=== PATIENT | female | born 1980 | race Caucasian/White ===

== ENCOUNTER 2018-01-15 13:46 | Emergency (ER) | payer OTHER ==
[2018-01-15 14:17] VITALS: BP 127/65
--- NOTE | 2018-01-15 14:47 | UC ---
Throat Pain/Nasal Guillermo HPI - HPI Summary HPI Summary: Pt c/o sudden onset of mouth, tongue and throat pain with sores on tongue, inner cheeks, and throat. Pt has prior hx of coxsackie - History of Current Complaint Chief Complaint: UCGeneralIllness Stated Complaint: SORE THROAT Time Seen by Provider: 01/15/18 14:36 Hx Obtained From: Patient Hx Last Menstrual Period: 12/30/17 ?: No Onset/Duration: Sudden Onset, Lasting Days, Still Present Severity: Moderate Pain Intensity: 8 - Epiglottits Risk Factors Epiglottis Risk Factors: Sudden Onset - Allergies/Home Medications Allergies/Adverse Reactions: Allergies Allergy/AdvReac Type Severity Reaction Status Date / Time No Known Allergies Allergy Verified 01/15/18 14:14 Home Medications: Home Medications Naproxen Sodium [Aleve] 220 mg PO Q6H PRN 01/15/18 [History Confirmed 01/15/18] PMH/Surg Hx/FS Hx/Imm Hx Previously Healthy: Yes - Surgical History Surgical History: Yes Surgery Procedure, Year, and Place: carpal tunnel. x2 - Family History Known Family History: Positive: Cardiac Disease - Social History Occupation: Employed Full-time Lives: With Family Alcohol Use: None Alcohol Amount: sober for 3 years Substance Use Type: None Smoking Status (MU): Never Smoked Tobacco Have You Smoked in the Last Year: No Review of Systems All Other Systems Reviewed And Are Negative: Yes Constitutional: Positive: Fatigue Skin: Positive: Negative Eyes: Positive: Negative ENT: Positive: Sore Throat, Other - mouth pain, mouth sores Respiratory: Positive: Negative Cardiovascular: Positive: Negative Gastrointestinal: Positive: Negative Genitourinary: Positive: Negative Motor: Positive: Negative Neurovascular: Positive: Negative Musculoskeletal: Positive: Negative Neurological: Positive: Negative Psychological: Positive: Negative Is Patient Immunocompromised?: No Physical Exam Triage Information Reviewed: Yes Appearance: Pain Distress Vital Signs: Initial Vital Signs Temp 98.2 F 01/15/18 14:13 Pulse 64 01/15/18 14:13 Resp 15 01/15/18 14:13 BP 127/65 01/15/18 14:13 Pulse Ox 98 01/15/18 14:13 Vital Signs Reviewed: Yes Eye Exam: Normal ENT Exam: Other - scattered aphthous in mouth aon on tongue Dental Exam: Normal Neck exam: Normal Respiratory Exam: Normal Respiratory: Positive: No respiratory distress Musculoskeletal Exam: Normal Neurological Exam: Normal Psychological Exam: Normal Skin Exam: Normal Throat Pain/Nasal Course/Dx - Differential Dx/Diagnosis Differential Diagnosis/HQI/PQRI: Pharyngitis, URI Provider Diagnosis: Aphthous stomatitis, Acute viral syndrome Discharge - Sign-Out/Discharge Documenting (check all that apply): Patient Departure All imaging exams completed and their final reports reviewed: No Studies - Discharge Plan Condition: Stable Disposition: HOME Prescriptions: Lidocaine 2% VISCOUS* [Xylocaine 2% Viscous*] 15 ml SWISH SPIT Q4H PRN #1 btl PRN Reason: Pain predniSONE TAB* [Deltasone 20 MG TAB*] 20 mg PO DAILY #4 tab ValACYclovir (*) [Valtrex 1 GM(*)] 1 gm PO Q12H #14 tab Patient Education Materials: Canker Sores (ED) [facility]errals: [facility] [Outside] No Primary Care Phys,NOPCP [Primary Care Provider] - - Billing Disposition and Condition Condition: STABLE Disposition: Home
== END 2018-01-15 14:57 | disposition home or self-care (01) ==
LOC: UCCORT 13:46
DX: K12.1 Other forms of stomatitis (principal); B34.9 Viral infection, unspecified
CPT/HCPCS: 99212; G0463

== ENCOUNTER 2018-09-15 07:37 | Emergency (ER) | payer OTHER ==
[2018-09-15 07:48] VITALS: BP 132/92
[2018-09-15] MEDS ORDERED: Acetaminophen TAB* 325 MG PO ONE (08:08)
--- NOTE | 2018-09-15 10:27 | UC ---
General HPI - HPI Summary HPI Summary: YESTERDAY MORNING WAS MAKING THE BED WHEN SHE SUDDENLY DEVELOPED SHARP PAIN IN HER LEFT LOWER ANTERIOR RIB CAGE. PAIN IS WORSE WITH DEEP INSPIRATION AND ANY MOVEMENT AT ALL. TOOK SOME IBUPROFEN WITH ONLY SLIGHT RELIEF. SHE DENIES CHEST PAIN. NO NAUSEA. NO SWEATS. - History of Current Complaint Chief Complaint: UCChestPain Stated Complaint: PAIN UNDER RIB AREA Time Seen by Provider: 09/15/18 07:55 Hx Obtained From: Patient Hx Last Menstrual Period: 09/01/18 Onset/Duration: Sudden Onset, Lasting Days - 1 DAY, Still Present Timing: Constant Onset Severity: Moderate Current Severity: Moderate Pain Intensity: 1 Associated Signs & Symptoms: Negative: Abdominal Pain, Back Pain, Chest Pain, Diaphoresis, Headache, Nausea, Trauma - Allergy/Home Medications Allergies/Adverse Reactions: Allergies Allergy/AdvReac Type Severity Reaction Status Date / Time No Known Allergies Allergy Verified 09/15/18 07:48 Home Medications: Home Medications Ibuprofen 800 mg PO ONCE PRN 09/15/18 [History Confirmed 09/15/18] PMH/Surg Hx/FS Hx/Imm Hx Psychological History: Depression - Surgical History Surgical History: Yes Surgery Procedure, Year, and Place: carpal tunnel. x2. vericose vein surgery - Family History Known Family History: Positive: Cardiac Disease - Social History Alcohol Use: Occasionally Alcohol Amount: sober for 3 years Substance Use Type: None Smoking Status (MU): Never Smoked Tobacco Have You Smoked in the Last Year: No Review of Systems All Other Systems Reviewed And Are Negative: Yes Constitutional: Positive: Negative Skin: Positive: Negative Respiratory: Positive: Other - pleuritic pain Cardiovascular: Positive: Negative Gastrointestinal: Positive: Negative Musculoskeletal: Positive: Other: - left rib cage pain Physical Exam Triage Information Reviewed: Yes Appearance: Well-Nourished, Pain Distress - moderate Vital Signs: Initial Vital Signs Temp 99 F 09/15/18 07:44 Pulse 66 09/15/18 07:44 Resp 16 09/15/18 07:44 BP 132/92 09/15/18 07:44 Pulse Ox 98 09/15/18 07:44 Vital Signs Reviewed: Yes Eyes: Positive: Conjunctiva Clear ENT: Positive: Hearing grossly normal Neck: Positive: Supple Respiratory: Positive: No respiratory distress, No accessory muscle use Cardiovascular: Positive: Pulses Normal Abdomen Description: Positive: Nontender, Soft. Negative: CVA Tenderness (R), CVA Tenderness (L), Distended, Guarding Musculoskeletal: Positive: No Edema, ROM Limited @ - trunk, Other: - EXQUISITELY TTP LEFT ANTERIOR LOWER RIB CAGE Neurological: Positive: Alert, Muscle Tone Normal Psychological: Positive: Age Appropriate Behavior Skin: Negative: Rashes Diagnostics - Laboratory Lab Results: URINE DIP SP. GR. 1.010, TR BLOOD, TR LEUKS, 1+ BILI - Radiology LEFT RIB XRAYS Radiology Interpretation Completed By: Radiologist Summary of Radiographic Findings: No fracture of the left ribs is noted. No pneumothorax is noted. Course/Dx - Course Course Of Treatment: UNCLEAR ETIOLOGY OF PATIENT'S DISCOMFORT ALTHOUGH IT SEEMS TO BE STEMMING FROM HER LEFT ANTERIOR LOWER RIB CAGE. RIB SERIES UNREMARKABLE. URINE WITH TRACE BLOOD AND TRACE LEUKOCYTES. NO ACUTE INTERVENTION BASED ON THIS RESULT BUT SPECIMEN HAS BEEN SENT FOR CULTURE. SYMPTOMS WERE IMPROVED AFTER TYLENOL. WILL SEND HOME WITH CONSERVATIVE MANAGEMENT/CAREFUL OBSERVATION. PAIN MAY BE DUE TO INTERCOSTAL MUSCLE STRAIN. OTC MEDICATIONS NEEDED. SHE WILL GO TO THE ER WITHOUT FAIL IF HER SYMPTOMS WORSEN. - Diagnoses Provider Diagnosis: Intercostal muscle pain Discharge - Sign-Out/Discharge Documenting (check all that apply): Patient Departure All imaging exams completed and their final reports reviewed: Yes - Discharge Plan Condition: Stable Disposition: HOME Prescriptions: Cyclobenzaprine TAB* [Flexeril TAB*] 10 mg PO BID PRN #30 tab PRN Reason: Pain Patient Education Materials: Muscle Strain (ED) Referrals: [facility] [Outside] - If Needed Additional Instructions: UNCLEAR ETIOLOGY OF YOUR DISCOMFORT. SYMPTOMS MOST CONSISTENT WITH INTERCOSTAL MUSCLE STRAIN. YOUR LEFT RIB/CHEST X-RAYS WERE UNREMARKABLE. URINE HAD A TRACE AMOUNT OF BACTERIA AND BLOOD IN IT SO WE HAVE SENT IT FOR CULTURE TO ENSURE NO INFECTIOUS PROCESS. WE WILL CALL YOU IF ANY ABNORMAL RESULTS. TREATED CONSERVATIVELY WITH HEAT AND STRETCHING. WILL GIVE FLEXERIL FOR YOU TO USE NEEDED. CONTINUE OTC MEDICATIONS NEEDED FOR DISCOMFORT. GO TO THE ER WITHOUT FAIL IF YOU DEVELOP WORSENING PAIN, FEVER, SHORTNESS OF BREATH, NAUSEA OR ANY OTHER CONCERNING SYMPTOMS. IBUPROFEN MAX DOSE: 600MG (3 TABS) EVERY 6 HRS OR 800MG (4 TABS) EVERY 8 HRS OR NAPROXEN MAX DOSE: 440MG (2 TABS) EVERY 12 HRS TYLENOL MAX DOSE: 1000MG (2 EXTRA STRENGTH TABS) EVERY 8 HRS OR 650MG (2 REGULAR TABS) EVERY 6 HRS CALL THE NUMBER BELOW FOR ASSISTANCE IN ESTABLISHING WITH A PCP An additional resource available to assist in finding the appropriate physician for your health care needs is the [facility] ([facility]). You may contact them by calling [phone]. - Billing Disposition and Condition Condition: STABLE Disposition: Home
--- NOTE | 2018-09-16 15:09 | UC ---
- Progress Note Progress Note: notify pt prelim culture show UTI antibiotic ERxed Course/Dx - Diagnoses Provider Diagnoses: Intercostal muscle pain Discharge - Sign-Out/Discharge Documenting (check all that apply): Post-Discharge Follow Up All imaging exams completed and their final reports reviewed: Yes - Discharge Plan Condition: Stable Disposition: HOME Prescriptions: Cephalexin CAP* [Keflex CAP*] 500 mg PO BID #14 cap Cyclobenzaprine TAB* [Flexeril TAB*] 10 mg PO BID PRN #30 tab PRN Reason: Pain Patient Education Materials: Muscle Strain (ED) Referrals: [facility] [Outside] - If Needed Additional Instructions: UNCLEAR ETIOLOGY OF YOUR DISCOMFORT. SYMPTOMS MOST CONSISTENT WITH INTERCOSTAL MUSCLE STRAIN. YOUR LEFT RIB/CHEST X-RAYS WERE UNREMARKABLE. URINE HAD A TRACE AMOUNT OF BACTERIA AND BLOOD IN IT SO WE HAVE SENT IT FOR CULTURE TO ENSURE NO INFECTIOUS PROCESS. WE WILL CALL YOU IF ANY ABNORMAL RESULTS. TREATED CONSERVATIVELY WITH HEAT AND STRETCHING. WILL GIVE FLEXERIL FOR YOU TO USE NEEDED. CONTINUE OTC MEDICATIONS NEEDED FOR DISCOMFORT. GO TO THE ER WITHOUT FAIL IF YOU DEVELOP WORSENING PAIN, FEVER, SHORTNESS OF BREATH, NAUSEA OR ANY OTHER CONCERNING SYMPTOMS. IBUPROFEN MAX DOSE: 600MG (3 TABS) EVERY 6 HRS OR 800MG (4 TABS) EVERY 8 HRS OR NAPROXEN MAX DOSE: 440MG (2 TABS) EVERY 12 HRS TYLENOL MAX DOSE: 1000MG (2 EXTRA STRENGTH TABS) EVERY 8 HRS OR 650MG (2 REGULAR TABS) EVERY 6 HRS CALL THE NUMBER BELOW FOR ASSISTANCE IN ESTABLISHING WITH A PCP An additional resource available to assist in finding the appropriate physician for your health care needs is the [facility] ([facility]). You may contact them by calling [phone]. - Billing Disposition and Condition Condition: STABLE Disposition: Home
== END 2018-09-15 09:40 | disposition home or self-care (01) ==
LOC: UCEAST 07:37
DX: M79.18 Myalgia, other site (principal); F32.9 Major depressive disorder, single episode, unspecified
CPT/HCPCS: 81002; 87077; 87086; 87186; 99212; A9270-GY; G0463

== ENCOUNTER 2018-10-27 14:53 | Emergency (ER) | payer OTHER ==
[2018-10-27 15:17] VITALS: BP 148/86
--- NOTE | 2018-10-27 16:04 | UC ---
UC General HPI - HPI Summary HPI Summary: The patient is a 38 yo female that requests a prescription for vivitrol She used to live in [place] and had been on it for 4 fours It was instrumental in preventing her drinking alcohol She recently moved here and has been drinking daily since May For the past week she has been drinking at night to the point of passing out she contacted a clinic and was not able to get treated for 1 1/2- 2 weeks - History of Current Complaint Chief Complaint: UCMedRefill Stated Complaint: MED REFILL Time Seen by Provider: 10/27/18 15:46 Hx Obtained From: Patient Hx Last Menstrual Period: 10/27/18 Onset/Duration: Gradual Onset Timing: Constant Onset Severity: Moderate Current Severity: Moderate Pain Intensity: 0 - Allergy/Home Medications Allergies/Adverse Reactions: Allergies Allergy/AdvReac Type Severity Reaction Status Date / Time No Known Allergies Allergy Verified 10/27/18 15:11 Home Medications: Home Medications NK [No Home Medications Reported] 10/27/18 [History Confirmed 10/27/18] PMH/Surg Hx/FS Hx/Imm Hx Previously Healthy: Yes - Surgical History Surgical History: Yes Surgery Procedure, Year, and Place: R carpal tunnel. x2. varicose vein surgery - Family History Known Family History: Positive: Cardiac Disease - Social History Alcohol Use: Daily Alcohol Amount: a few bottles of wine/ vodka day Substance Use Type: Marijuana Substance Use Comment - Amount & Last Used: occasional Smoking Status (MU): Former Smoker Have You Smoked in the Last Year: No Review of Systems All Other Systems Reviewed And Are Negative: Yes Constitutional: Positive: Negative Skin: Positive: Negative Eyes: Positive: Negative ENT: Positive: Negative Respiratory: Positive: Negative Cardiovascular: Positive: Negative Gastrointestinal: Positive: Negative Genitourinary: Positive: Negative Motor: Positive: Negative Neurovascular: Positive: Negative Musculoskeletal: Positive: Negative Neurological: Positive: Negative Psychological: Positive: Negative Physical Exam Triage Information Reviewed: Yes Appearance: Well-Appearing, No Pain Distress, Well-Nourished Vital Signs: Initial Vital Signs Temp 98.1 F 10/27/18 15:12 Pulse 72 10/27/18 15:12 Resp 20 10/27/18 15:12 BP 148/86 10/27/18 15:12 Pulse Ox 100 10/27/18 15:12 Vital Signs Reviewed: Yes Eyes: Positive: Conjunctiva Clear ENT: Positive: Hearing grossly normal. Negative: Nasal congestion, Nasal drainage, Tonsillar swelling, Tonsillar exudate, Trismus, Muffled voice, Hoarse voice Neck: Positive: Supple, Nontender, No Lymphadenopathy Respiratory: Positive: Lungs clear, Normal breath sounds, No respiratory distress Cardiovascular: Positive: RRR, No Murmur Abdomen Description: Positive: Nontender, No Organomegaly, Soft Bowel Sounds: Positive: Present Musculoskeletal: Positive: ROM Intact, No Edema Neurological: Positive: Alert Psychological Exam: Normal Skin Exam: Normal Course/Dx - Course Course Of Treatment: I called [facility] and they said they should be able to see her tomorrow - Diagnoses Provider Diagnosis: Alcoholism Discharge ED - Sign-Out/Discharge Documenting (check all that apply): Patient Departure All imaging exams completed and their final reports reviewed: No Studies - Discharge Plan Condition: Stable Disposition: HOME Patient Education Materials: Alcohol Dependence (ED) Referrals: [facility] [Outside] (call this number to find a primary care provider) Additional Instructions: contact [facility] [phone] They should be able to assist you with restarting vivitrol - Billing Disposition and Condition Condition: STABLE Disposition: Home
== END 2018-10-27 16:10 | disposition home or self-care (01) ==
LOC: UCEAST 14:53
DX: F10.20 Alcohol dependence, uncomplicated (principal); Z87.891 Personal history of nicotine dependence
CPT/HCPCS: 99211; G0463